=== PATIENT | male | born 1995 | race African-American/Black ===

== ENCOUNTER 2017-09-24 19:16 | Emergency (ER) | payer SELFPAY ==
--- NOTE | 2017-09-24 19:32 | ER Report ---
History and Physical Time Seen By MD: 19:31 Hx. of Stated Complaint: Pt dx with bruised right lung in [place] after horse accident (hit saddle horn) and has been having difficulty breathing ever since. HPI/ROS CHIEF COMPLAINT: difficulty breathing and right chest pain HISTORY OF PRESENT ILLNESS: This is a 21 year old male. Last week he had an injury while [place] horse [place]. He was thrown forward and his right chest hit the saddle horn. He was evaluated at the ER in [place], and diagnosed with a bruise on his right lung. He reported that they did not find evidence of a rib fracture. He has had pain since then, but pain worsening the last few days. He is coughing more, but not coughing up any blood. Currently productive of small yellow phlegm. He has pain on the right anterior chest and back by his scapula. Worsens with movements, deep breaths or coughing. No fevers or chills, but has been sweating. Allergies: Coded Allergies: No Known Drug Allergies (Unverified , 09/24/17) Home Meds Active Scripts Hydrocodone Bit/Acetaminophen (HYDROCODON-ACETAMINOPHEN 5-325) 1 Each Tablet, 1 EACH PO Q4H Y for PAIN, #10 TAB 0 Refills Prov:JUSTYN CATALAN MD 09/25/17 Reported Medications Benzonatate 100 Mg Cap (TESSALON PERLE 100 MG CAP) 100 Mg Capsule, 100 MG PO TID , #15 CAP 09/24/17 Ibuprofen (IBUPROFEN) 600 Mg Tablet, 1 TAB PO Q6H, TAB 09/24/17 Hydrocodone Bit/Acetaminophen (HYDROCODON-ACETAMINOPHEN 5-325) 1 Each Tablet, 1 EACH PO Q6H, TAB 09/24/17 Reviewed Nurses Notes: Yes Constitutional Vital Sign - Last 24 Hours 09/24/17 09/24/17 09/24/17 09/24/17 19:23 19:26 19:30 19:31 Temp 98.1 Pulse 101 109 Resp 22 18 B/P (MAP) 151/90 (110) 151/90 161/88 (112) Pulse Ox 92 94 O2 Delivery Room Air 09/24/17 09/24/17 09/24/17 09/24/17 19:46 19:51 20:06 20:21 Pulse 96 87 99 89 Resp 13 9 Pulse Ox 95 92 09/24/17 09/24/17 09/24/17 09/24/17 20:30 20:36 20:40 20:51 Pulse 95 95 Resp 22 13 B/P (MAP) 132/89 (103) 108/78 (88) Pulse Ox 90 93 09/24/17 09/24/17 09/24/17 09/24/17 21:00 21:06 21:20 21:21 Pulse 94 96 Resp 11 10 B/P (MAP) 128/84 (99) 137/84 (101) Pulse Ox 94 94 09/24/17 09/24/17 09/24/17 09/24/17 21:40 21:56 22:00 22:11 Pulse 97 94 Resp 17 9 B/P (MAP) 143/80 (101) 169/75 (106) Pulse Ox 95 91 09/24/17 09/24/17 09/24/17 09/24/17 22:20 22:26 22:40 22:41 Pulse 90 90 Resp 27 12 B/P (MAP) 151/87 (108) 194/151 (165) Pulse Ox 93 94 09/24/17 09/24/17 09/24/17 09/24/17 22:52 22:56 23:00 23:11 Pulse 94 97 Resp 20 20 B/P (MAP) 175/84 (114) 144/88 (106) Pulse Ox 92 93 09/24/17 09/24/17 09/24/17 09/24/17 23:16 23:28 23:31 23:36 Pulse 85 86 ??? Resp 12 13 B/P (MAP) 134/103 (113) Pulse Ox 89 91 09/24/17 09/24/17 09/25/17 09/25/17 23:40 23:51 00:00 00:06 Pulse 83 81 Resp 16 16 B/P (MAP) ???/??? (1665) 148/79 (102) Pulse Ox 93 98 09/25/17 09/25/17 09/25/17 00:20 00:21 00:26 Pulse 78 80 Resp 24 17 B/P (MAP) 156/91 (112) Pulse Ox 94 97 Physical Exam General Appearance: The patient is alert. Acute distress due to pain. Eyes: Pupils are equal, round. No pallor, injection or icterus. ENT: Mucous membranes are moist. Normal oral mucosa. Posterior oropharynx is normal. Neck: Supple and non tender. Respiratory: Appears to hurt to breath. Lungs are clear to auscultation. Cardiovascular: Mild tachycardia, but regular rhythm. No murmurs, gallops or rubs. Normal capillary refill. Gastrointestinal: Abdomen is soft and non tender. Nondistended. Normal active bowel sounds. Neurological: Alert and oriented x3. No focal neurologic deficits Skin: Warm and dry. Musculoskeletal: Chest wall pain anterior right and posterior right, but no pain laterally. Full range of motion. No tenderness in palpation of the cervical , thoracic and lumbar spine. DIFFERENTIAL DIAGNOSIS: After history and physical exam, differential diagnosis was considered for a patient with history of pulmonary contusion last week, with worsening pain and breathing, concern for pleuritic pain, pneumonia, effusion, occult rib fracture. Medical Decision Making Data Points Result Diagram: 09/24/17202609/24/172026 Laboratory Hematology Test 09/24/17 20:27 Red Blood Count 4.85 M/uL (4.00-5.60) Mean Corpuscular Volume 73.2 fL (80.0-96.0) Mean Corpuscular Hemoglobin 24.6 pg (26.0-33.0) Mean Corpuscular Hemoglobin Concent 33.6 g/dL (32.0-36.0) Red Cell Distribution Width 17.3 % (11.5-14.5) Mean Platelet Volume 8.0 fL (7.2-11.1) Neutrophils (%) (Auto) 48.6 % (39.4-72.5) Lymphocytes (%) (Auto) 40.5 % (17.6-49.6) Monocytes (%) (Auto) 7.2 % (4.1-12.4) Eosinophils (%) (Auto) 2.2 % (0.4-6.7) Basophils (%) (Auto) 1.5 % (0.3-1.4) Nucleated RBC Relative Count (auto) 0.1 /100WBC Neutrophils # (Auto) 4.1 K/uL (2.0-7.4) Lymphocytes # (Auto) 3.4 K/uL (1.3-3.6) Monocytes # (Auto) 0.6 K/uL (0.3-1.0) Eosinophils # (Auto) 0.2 K/uL (0.0-0.5) Basophils # (Auto) 0.1 K/uL (0.0-0.1) Nucleated RBC Absolute Count (auto) 0.01 K/uL Prothrombin Time 13.3 seconds (12.0-14.4) Prothromb Time International Ratio 1.01 Activated Partial Thromboplast Time 34 seconds (23-35) Sodium Level 139 mmol/L (137-145) Potassium Level 4.1 mmol/L (3.5-5.0) Chloride Level 103 mmol/L (98-107) Carbon Dioxide Level 24 mmol/L (22-30) Blood Urea Nitrogen 13 mg/dl (9-21) Creatinine 0.90 mg/dl (0.66-1.25) Glomerular Filtration Rate Calc > 60.0 Random Glucose 106 mg/dl (75-110) Lactate 1.7 mmol/L (0.7-2.1) Calcium Level 9.5 mg/dl (8.4-10.2) Total Bilirubin 0.3 mg/dl (0.2-1.3) Aspartate Amino Transf (AST/SGOT) 48 U/L (0-35) Alanine Aminotransferase (ALT/SGPT) 55 U/L (0-56) Alkaline Phosphatase 84 U/L (0-126) Total Protein 7.5 gm/dl (6.3-8.2) Albumin 3.7 g/dl (3.5-5.0) Chemistry Test 09/24/17 20:27 White Blood Count 8.4 k/uL (4.5-11.0) Red Blood Count 4.85 M/uL (4.00-5.60) Hemoglobin 11.9 g/dL (14.0-18.0) Hematocrit 35.5 % (42.0-52.0) Mean Corpuscular Volume 73.2 fL (80.0-96.0) Mean Corpuscular Hemoglobin 24.6 pg (26.0-33.0) Mean Corpuscular Hemoglobin Concent 33.6 g/dL (32.0-36.0) Red Cell Distribution Width 17.3 % (11.5-14.5) Platelet Count 361 K/uL (150-450) Mean Platelet Volume 8.0 fL (7.2-11.1) Neutrophils (%) (Auto) 48.6 % (39.4-72.5) Lymphocytes (%) (Auto) 40.5 % (17.6-49.6) Monocytes (%) (Auto) 7.2 % (4.1-12.4) Eosinophils (%) (Auto) 2.2 % (0.4-6.7) Basophils (%) (Auto) 1.5 % (0.3-1.4) Nucleated RBC Relative Count (auto) 0.1 /100WBC Neutrophils # (Auto) 4.1 K/uL (2.0-7.4) Lymphocytes # (Auto) 3.4 K/uL (1.3-3.6) Monocytes # (Auto) 0.6 K/uL (0.3-1.0) Eosinophils # (Auto) 0.2 K/uL (0.0-0.5) Basophils # (Auto) 0.1 K/uL (0.0-0.1) Nucleated RBC Absolute Count (auto) 0.01 K/uL Prothrombin Time 13.3 seconds (12.0-14.4) Prothromb Time International Ratio 1.01 Activated Partial Thromboplast Time 34 seconds (23-35) Glomerular Filtration Rate Calc > 60.0 Lactate 1.7 mmol/L (0.7-2.1) Calcium Level 9.5 mg/dl (8.4-10.2) Total Bilirubin 0.3 mg/dl (0.2-1.3) Aspartate Amino Transf (AST/SGOT) 48 U/L (0-35) Alanine Aminotransferase (ALT/SGPT) 55 U/L (0-56) Alkaline Phosphatase 84 U/L (0-126) Total Protein 7.5 gm/dl (6.3-8.2) Albumin 3.7 g/dl (3.5-5.0) Coagulation Test 09/24/17 20:27 Prothrombin Time 13.3 seconds Prothromb Time International Ratio 1.01 Activated Partial Thromboplast Time 34 seconds EKG/Imaging Imaging 2 VIEWS CHEST INDICATION: Shortness of breath. History of pulmonary contusion one week ago. COMPARISON: None available FINDINGS: Cardiomediastinal silhouette and pulmonary vessels within normal limits. There is no focal infiltrate or lobar consolidation. There is no pneumothorax or pleural effusion. No nodule. Upper abdomen is unremarkable. No acute bony abnormality. IMPRESSION: 1. No acute cardiopulmonary process. Report Dictated By: Yair Church at 09/24/2017 8:24 PM ADDENDUM #2 Addendum: The patient was brought back for a repeat CTA of the pulmonary arteries and received an additional 100 mL of Isovue-370. Contrast opacification of the pulmonary arteries is again slightly suboptimal. No central or lobar pulmonary embolism. Subtle subsegmental or subsegmental pulmonary emboli may not be seen. Report Dictated By: Oniel Broderick MD at 09/25/2017 12:04 AM Report E-Signed By: Oniel Broderick MD at 09/25/2017 12:33 AM ADDENDUM #1 Addendum: Suboptimal contrast opacification of the pulmonary arteries. There is no central or lobar pulmonary embolism. However, segmental or subsegmental pulmonary emboli may be missed. Results were called to JUSTYN CATALAN at 09/24/2017 11:07 PM. Report Dictated By: Oniel Broderick MD at 09/24/2017 11:06 PM Report E-Signed By: Oniel Broderick MD at 09/24/2017 11:07 PM ORIGINAL REPORT EXAMINATION: CTA of the chest with IV contrast HISTORY: Chest pain. Shortness of breath. TECHNIQUE: Pulmonary embolus protocol - Thin-slice axial imaging of the chest was performed during maximal pulmonary arterial opacification with intravenous nonionic iodinated contrast. 3D coronal slab MIPs and 2D reconstructions in the coronal and sagittal planes were performed to aid in pulmonary embolus detection. Service Operator images have been stored on PACS. One of the following dose optimization techniques was utilized in the performance of this exam: Automated exposure control; adjustment of the mA and/ or kV according to the patient's size; or use of an iterative reconstruction technique. Specific details can be referenced in the facility's radiology CT exam operational policy. CONTRAST: 100 mL of IV Isovue-370 COMPARISON: Chest x-ray dated 09/24/2017. FINDINGS: CTA CHEST: Please note that this exam is optimized for assessment of the pulmonary arteries and is not intended as a diagnostic study of the thoracic aorta, coronary arteries or venous structures. Angiographic Findings: Pulmonary arteries: There are no filling defects in the main, right, left, lobar , segmental or visualized sub-segmental branches of the pulmonary arterial system. No intraluminal webs or bronchial collaterals. Other vasculature: Negative. Additional non-angiographic findings: Lungs / Pleura: Negative. Mediastinum / Kerrie: Negative. Heart / Pericardium: Negative. Musculoskeletal / Body wall: Negative. Lymph node assessment: Negative. Upper abdomen: Negative. Lower neck: Negative. IMPRESSION: No evidence of acute or chronic pulmonary embolism. Otherwise no acute cardiopulmonary process. Report Dictated By: Oniel Broderick MD at 09/24/2017 10:35 PM ED Course/Re-evaluation Clinical Indication for ER IV: Hydration, IV Access ED Course Patient had good pain relief with Fentanyl. Breathing easily. Vital signs were normal throughout stay. Labs unremarkable. Chest x-ray negative. CTA was able to rule out PE in large and moderate arteries, but unable to in small areas despite repeat. NS 1000cc given. Patient feels better. This seems to be pleuritic chest pain. Discussed this with the patient and discussed using Ibuprofen and short term prescription for some Lortab. Decision to Disposition Date: September 25, 2017 Decision to Disposition Time: 00:24 Depart Departure Latest Vital Signs Vital Signs Date Time Temp Pulse Resp B/P (MAP) Pulse Ox O2 Delivery O2 Flow Rate FiO2 09/25/17 00:26 80 17 97 09/25/17 00:20 156/91 (112) 09/24/17 19:26 98.1 Room Air Impression: Primary Impression: Pleuritic chest pain Condition: Improved Disposition: HOME OR SELF-CARE New Scripts Hydrocodone Bit/Acetaminophen (HYDROCODON-ACETAMINOPHEN 5-325) 1 Each Tablet 1 EACH PO Q4H Y for PAIN, #10 TAB 0 Refills Prov: JUSTYN CATALAN MD 09/25/17 Patient Instructions: Pleurisy (ED) Additional Instructions: The pain you are having appears to be inflammatory in the lining of your lungs and chest wall. Take Ibuprofen 200mg over the counter tablets, take 4 tablets every 8 hours for pain. You can also take Lortab 5/325, one every 4 hours as needed for pain. Increase fluid intake. JUSTYN CATALAN MD September 24, 2017 19:32
[2017-09-24] MEDS ORDERED: BENZ100C4 PO (19:33)
[2017-09-24] MEDS ORDERED: HYDR-385 PO (19:33)
[2017-09-24] MEDS ORDERED: IBUP600T22 PO (19:33)
[2017-09-24] MEDS ORDERED: fentaNYL CITR 100 MCG/2 ML AMP IVP ONE (19:40)
[2017-09-24] MEDS ORDERED: ONDANSETRON 4 MG/2 ML VIAL IVP ONE (19:40)
--- NOTE | 2017-09-24 20:29 | RADIOLOGY IMAGING REPORT ---
FACILITY: [facility] [place] PATIENT NAME: Frank Negro : 1995 MR: [id number] V: [id number] EXAM DATE: ORDERING PHYSICIAN: JUSTYN CATALAN TECHNOLOGIST: Location: [facility] Patient: Frank Negro : 1995 Visit/Account:[id number] Date of Sevice: 09/24/2017 2 VIEWS CHEST INDICATION: Shortness of breath. History of pulmonary contusion one week ago. COMPARISON: None available FINDINGS: Cardiomediastinal silhouette and pulmonary vessels within normal limits. There is no focal infiltrate or lobar consolidation. There is no pneumothorax or pleural effusion. No nodule. Upper abdomen is unremarkable. No acute bony abnormality. IMPRESSION: 1. No acute cardiopulmonary process. Report Dictated By: Yair Church at 09/24/2017 8:24 PM Report E-Signed By: Yair Church at 09/24/2017 8:25 PM [id number]
[2017-09-24 20:43] LABS: INR 1.01
[2017-09-24 20:44] LABS: PLATELET COUNT, AUTOMATED 361 K/uL (150-450)
[2017-09-24] MEDS ORDERED: NS 0.9% 150 ML BAG 150 ML ONE ×2 (21:17→22:19)
[2017-09-24] MEDS ORDERED: IOPAMIDOL 76% 100 ML INFUS BTL 100 ML ONE ×2 (21:17→22:19)
[2017-09-24] MEDS ORDERED: NS(*) 0.9% 1000 ML BAG 1,000 ML IV ONE (22:15)
--- NOTE | 2017-09-24 22:49 | RADIOLOGY IMAGING REPORT ---
FACILITY: [facility] PATIENT NAME: Frank Negro : 1995 MR: [id number] V: [id number] EXAM DATE: ORDERING PHYSICIAN: JUSTYN CATALAN TECHNOLOGIST: Location: [facility] Patient: Frank Negro : 1995 Visit/Account:[id number] Date of Sevice: 09/24/2017 ADDENDUM #2 Addendum: The patient was brought back for a repeat CTA of the pulmonary arteries and received an add itional 100 mL of Isovue-370. Contrast opacification of the pulmonary arteries is again slightly subo ptimal. No central or lobar pulmonary embolism. Subtle subsegmental or subsegmental pulmonary emboli may not be seen. Report Dictated By: Oniel Broderick MD at 09/25/2017 12:04 AM Report E-Signed By: Oniel Broderick MD at 09/25/2017 12:33 AM ADDENDUM #1 Addendum: Suboptimal contrast opacification of the pulmonary arteries. There is no central or lobar p ulmonary embolism. However, segmental or subsegmental pulmonary emboli may be missed. Results were called to JUSTYN CATALAN at 09/24/2017 11:07 PM. Report Dictated By: Oniel Broderick MD at 09/24/2017 11:06 PM Report E-Signed By: Oniel Broderick MD at 09/24/2017 11:07 PM ORIGINAL REPORT EXAMINATION: CTA of the chest with IV contrast HISTORY: Chest pain. Shortness of breath. TECHNIQUE: Pulmonary embolus protocol - Thin-slice axial imaging of the chest was performed during maximal pulmonary arterial opacification with intravenous nonionic iodinated contrast. 3D coronal sla b MIPs and 2D reconstructions in the coronal and sagittal planes were performed to aid in pulmonary e mbolus detection. Pitching Coach images have been stored on PACS. One of the following dose optimization techniques was utilized in the performance of this exam: Autom ated exposure control; adjustment of the mA and/or kV according to the patient's size; or use of an i terative reconstruction technique. Specific details can be referenced in the facility's radiology C T exam operational policy. CONTRAST: 100 mL of IV Isovue-370 COMPARISON: Chest x-ray dated 09/24/2017. FINDINGS: CTA CHEST: Please note that this exam is optimized for assessment of the pulmonary arteries and is not intended as a diagnostic study of the thoracic aorta, coronary arteries or venous structures. Angiographic Findings: Pulmonary arteries: There are no filling defects in the main, right, left, lobar, segmental or visual ized sub-segmental branches of the pulmonary arterial system. No intraluminal webs or bronchial ibrahima aterals. Other vasculature: Negative. Additional non-angiographic findings: Lungs / Pleura: Negative. Mediastinum / Kerrie: Negative. Heart / Pericardium: Negative. Musculoskeletal / Body wall: Negative. Lymph node assessment: Negative. Upper abdomen: Negative. Lower neck: Negative. IMPRESSION: No evidence of acute or chronic pulmonary embolism. Otherwise no acute cardiopulmonary process. Report Dictated By: Oniel Broderick MD at 09/24/2017 10:35 PM Report E-Signed By: Oniel Broderick MD at 09/24/2017 10:44 PM WSN:[id number]
[2017-09-25 00:20] VITALS: BP 156/91
[2017-09-25] MEDS ORDERED: LOR5/325 PO (00:25)
[2017-09-25] MEDS ORDERED: ACET/HYDROC 5/325MG TH ER ONLY 2 TAB/BOTTLE PO ONE (00:30)
== END 2017-09-25 00:39 | disposition home or self-care (01) ==
LOC: ER 19:25
DX: R07.81 Pleurodynia (principal)
CPT/HCPCS: 36415; 71046; 71275; 83605; 85025; 85610; 85730; 96361; 96374; 96375; 99284; J2405; J3010; J7030; Q9967; 82040; 82247; 82310; 82374; 82435; 82565; 82947; 84075; 84132; 84155; 84295; 84450; 84460; 84520